=== PATIENT | female | born 1995 | race Caucasian/White ===

== ENCOUNTER → 2016-06-27 | Day surgery (SDC) | payer OTHER ==
[~2016-06-27] MED LIST: ACETAMINOPHEN/HYDROcodone 325 MG/5 MG TAB ONE; BUPIVACAINE HCL PF 0.25% 30 ML VIAL ONE; KETOROLAC TROMETHAMINE 30 MG/ML (IVP) VIAL IV PUSH ONE; LACTATED RINGER'S 1000 ML INJ 1,000 ML ONE; MIDAZOLAM HCL 2 MG/2 ML VIAL ONE; ONDANSETRON HCL 4 MG/2 ML VIAL IV PUSH ONE; PROPOFOL 200 MG/20 ML AMP IV ONE; ceFAZolin 2 GM PREMIX 50 ML ONE
--- NOTE | 2016-06-28 16:10 | MP ---
cc: KENJI PETTY DPM DATE OF SURGERY 06/27/2016 PREOPERATIVE DIAGNOSIS Right foot foreign body deep painful POSTOPERATIVE DIAGNOSIS Right foot foreign body deep painful PROCEDURES PERFORMED Incision and drainage right foot with removal of deep foreign body. SPECIMEN Deep wound culture ESTIMATED BLOOD LOSS Less than 30 mL COMPLICATIONS None ANESTHESIA General local 0.5% Marcaine plain 7 cc TOURNIQUET TIME 9 minutes at a setting of 215 mmHg PLAN OF ACTIVITY PACU then DC home once stable per same-day surgery criteria PROCEDURE IN DETAIL Under mild sedation, the patient was brought to the operating room, placed on the operative the supine position. Following the induction of general anesthesia, local anesthesia was obtained about the plantar forefoot utilizing standard block fashion. The patient's right foot was then scrubbed, prepped and draped in usual aseptic fashion. The foot was elevated and exsanguinated and the previously placed mid ankle tourniquet was inflated to 215 mmHg. Utilizing fluoroscopy, there is noted to be radiographic shadow that either corresponded with leaded glass or a monofilament wire. This was seen readily in between her third and fourth metatarsal heads. An incision was made on the plantar aspect of the foot. Sharp and blunt dissection was carried down beneath the dermal/epidermal junction into the deep fascia. Carefully, a small shard glass was removed in toto measuring approximately 4 mm x 2 mm x 2 mm. A deep culture was taken. There was noted to be serous fluid surrounding this area. There is noted to be no longer any hard tissue in this area. Fluoroscopy was used. There were no obvious signs of a radiopaque foreign body. The wound was flushed with copious amounts of normal saline. The wound edges were curetted and a one stitch was placed to loosely coapted the wound edge. Upon relieving the tourniquet, there were no obvious signs of delayed capillary fill time to the digits. There was minimal bleeding. A bulky bandage was placed. The patient transferred from OR to PACU with all vital signs stable. The patient will be heel weight bear to tolerance. The patient will follow up within 3-5 days. MARILEE Olivera/VICKIE /12:50 PM 4:05 PM
== END | disposition home or self-care (01) ==
LOC: ESDC 10:41
PROVIDERS: ATTEND Podiatrist Foot & Ankle Surgery
DX: S91.341A Puncture wound with foreign body, right foot, initial encounter (principal)
CPT/HCPCS: 01470; 28193; 73620; 76000; 87070; 87102; 87205; 87206; J0690; J1885; J2250; J2405; J3010; J7120; 77003